=== PATIENT | male | born 1985 | race American Indian/Alaskan Native ===

== ENCOUNTER 2017-04-01 23:13 | Emergency (ER) | payer SELFPAY ==
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
[2017-04-02] MEDS ORDERED: NORCO 5/325 PO ONE ×2 (05:41→06:12)
[2017-04-02] MEDS ORDERED: NORCO 5/325 ONE (05:42)
[2017-04-02] MEDS ORDERED: TORADOL IM ONE (06:11)
[2017-04-02] MEDS ORDERED: FLEXERIL PO ONE (06:11)
--- NOTE | 2017-04-02 08:59 | Cat Scan Report ---
CT scan of elbow and adjacent bones: History: Abnormal x-ray. Findings: There is nondisplaced fracture noted of the head of the radius. Joint effusion. No fracture of the trochlea articular surfaces and proximal ulna including the olecranon process. Impression: Fracture head of radius. Joint effusion.
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
--- NOTE | 2017-04-02 11:38 | Cat Scan Report ---
CT scan of head without IV contrast: History: Trauma. Findings: Ventricles are normal in size and midline in location. No evidence of acute ischemia, hemorrhage or mass. No extra-axial fluid collection. Normal brainstem and cerebellum. Normal sinuses and master air cells. Impression: No acute intracranial abnormality.
--- NOTE | 2017-04-02 11:40 | Cat Scan Report ---
CT scan of cervical spine: History: Trauma. Findings: The odontoid process and lateral mass and emptying posterior arch of atlas appears normal. Normal occipital condyles. Normal height of vertebral bodies and intervertebral disc. Normal articular surfaces. No fracture. Normal prevertebral soft tissue. Impression: No evidence of acute fracture.
[2017-04-02 13:52] VITALS: BP 117/65
== END 2017-04-02 13:55 | disposition home or self-care (01) ==
LOC: ED 23:13
DX: S52.121A Displaced fracture of head of right radius, initial encounter for closed fracture (principal); F17.210 Nicotine dependence, cigarettes, uncomplicated; Y08.89XA Assault by other specified means, initial encounter; Y93.89 Activity, other specified; Y92.89 Other specified places as the place of occurrence of the external cause; Y99.8 Other external cause status
CPT/HCPCS: 29105; 70450; 72125; 73060; 73100; 73200; 96372; 99284; J1885